=== PATIENT | female | born 1940 | race Caucasian/White ===

== ENCOUNTER 2018-02-16 06:37 | Day surgery (SDC) | payer MEDICARE ==
[2018-02-16] MEDS: NS 1,000 ML IV (06:00)
[2018-02-16] MEDS ORDERED: SIMETHICONE 40MG/0.6ML DROPS 30ML As Ordered (07:09)
[2018-02-16] MEDS ORDERED: PROPOFOL 500 MG/50 ML VIAL As Ordered (07:43)
[2018-02-16] MEDS ORDERED: LIDOCAINE 2% INJ 100 MG/5 ML SDV (FOR ANES.) As Ordered (07:43)
== END 2018-02-16 08:29 | disposition home or self-care (01) ==
LOC: M OPP 06:37
DX: R19.5 Other fecal abnormalities (principal); Z80.0 Family history of malignant neoplasm of digestive organs; D12.2 Benign neoplasm of ascending colon; K64.0 First degree hemorrhoids; K57.30 Diverticulosis of large intestine without perforation or abscess without bleeding; I10 Essential (primary) hypertension; E78.5 Hyperlipidemia, unspecified; E11.9 Type 2 diabetes mellitus without complications; Z78.0 Asymptomatic menopausal state; N81.10 Cystocele, unspecified; Z96.659 Presence of unspecified artificial knee joint; Z88.5 Allergy status to narcotic agent; Z88.7 Allergy status to serum and vaccine; Z79.82 Long term (current) use of aspirin; Z79.899 Other long term (current) drug therapy; Z79.84 Long term (current) use of oral hypoglycemic drugs; Z80.3 Family history of malignant neoplasm of breast; Z80.41 Family history of malignant neoplasm of ovary
CPT/HCPCS: 45380

== ENCOUNTER → 2018-06-22 | Outpatient (REF) | payer MEDICARE ==
[~2018-06-22] MED LIST: ASPI81TA85; ATOR1TAB19 PO; CALCIUM OR; COUM2.5T17 PO; METF750T PO; NATU400T; TYLE167L PO; ULTR50TA8 PO; VIT D OR; lisinopril OR
[2018-06-22 15:05] LABS: PERCENT SATURATION 20.2 % (13.2-45.0)
== END ==
LOC: M LAB REF 12:12
PROVIDERS: ATTEND Internal Medicine
DX: K62.5 Hemorrhage of anus and rectum (principal)

== ENCOUNTER → 2019-11-09 | Outpatient (CLI) | payer MEDICARE ==
--- NOTE | 2019-11-09 16:30 | REP ---
Pelvic sonography: History: Postmenopausal bleeding. Findings: Transabdominal and transvaginal scanning are performed. Visualized bladder moseley are smooth. Uterine dimensions are normal at 5.2 x 3.3 x 1.7 cm per endometrial echo 0.9 cm thick. There is a trace of endometrial fluid. There are scattered dystrophic myometrial calcifications. Upon insertion of the transvaginal probe, the technologist notes tissue was observed at the introitus question prolapse. The right ovary measures 2.4 x 0.9 x 2.3 cm. There is a 1.1 cm cyst at the right ovary. Left ovarian dimensions are 1.4 x 1.3 x 0.8 cm. A 0.7 cm cyst is seen on the left. Medial to the right ovary in the right adnexa there is a 2.7 x 2.3 x 2.4 cm cystic structure. Impression: 2.7 cm right adnexal cyst. Dystrophic calcifications scattered in the myometrium. Question vaginal or uterine prolapse as above. Electronically Signed by Cody Headley MD 11/09/2019 04:22 P
== END ==
LOC: M WHC 14:22
PROVIDERS: ATTEND Registered Nurse
DX: N83.291 Other ovarian cyst, right side (principal); N85.8 Other specified noninflammatory disorders of uterus; M95.0 Acquired deformity of nose

== ENCOUNTER 2020-01-05 06:51 | Day surgery (SDC) | payer MEDICARE ==
[~2020-01-05] VITALS: Ht 152.4 cm; Wt 55.8 kg
[~2020-01-05 06:51] MED LIST changes: +ASPI81TA86 PO; +D-40TAB2 PO; +LISI40TA PO; +METF500T13 PO
[2020-01-05] MEDS ORDERED: MIDAZOLAM INJ 2MG/2ML VIAL (J2250 PER 1MG) As Ordered ONE (07:48)
[2020-01-05] MEDS ORDERED: dexameTHASONE 4 MG/ML 1ML VIAL (J1100 PER 1MG) As Ordered ONE ×2 (07:48→09:24)
[2020-01-05] MEDS ORDERED: propofoL 200 MG/20 ML VIAL As Ordered ONE (07:48)
[2020-01-05] MEDS ORDERED: fentaNYL 100 MCG/2 ML INJECTION (J3010) As Ordered ONE (07:48)
[2020-01-05] MEDS ORDERED: LIDOCAINE 2% 100MG/5ML SDV (FOR ANES.) As Ordered ONE (07:48)
[2020-01-05] MEDS ORDERED: ONDANSETRON 4MG/2ML VIAL As Ordered ONE (07:48)
[2020-01-05] MEDS ORDERED: KETOROLAC 60MG 2ML VIAL As Ordered ONE (07:48)
[2020-01-05] MEDS ORDERED: LR 1,000 ML IV SCH ×2 (10:00→11:01)
[2020-01-05] MEDS ORDERED: ONDANSETRON 4MG/2ML VIAL IV PRN (10:00)
[2020-01-05] MEDS ORDERED: IBUPROFEN 600MG TAB PO PRN (11:01)
[2020-01-05 11:55] VITALS: BP 166/77
--- NOTE | 2020-02-23 12:35 | RO ---
DATE OF SURGERY: 01/05/2020 PREOPERATIVE DIAGNOSIS AND INDICATIONS FOR SURGERY: Post-menopausal bleeding and abnormal ultrasound. POSTOPERATIVE DIAGNOSIS: Post-menopausal bleeding and abnormal ultrasound. PROCEDURE: Dilatation and curettage with hysteroscopy, MyoSure. SURGEON: Brenna Flores MD ANESTHESIA: LMA. SPECIMENS: Endometrial sampling. BRIEF DESCRIPTION OF PROCEDURE AND FINDINGS: Margarita was brought to the operating room where sufficient LMA anesthesia was induced. She was prepped, draped, and positioned in the usual sterile fashion. The cervix was grasped with a single- toothed tenaculum and the bladder emptied with an in and out catheter. The cervix was then carefully sounded to 8. The cervical canal was dilated. 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 After careful dilation, the hysteroscope was placed and the endometrial cavity visualized. It was atrophic and small. She has quite a bit of cervix and very little corpus, as would be hoped in a 79-year-old woman. There were no polyps, although she had a 9-mm endometrium by ultrasound and clearly not a 9-mm lesion here. There is a tiny distortion right posterior fundal endometrium. The MyoSure light was used to sample the endometrium because I wanted to make sure we got a sample under direct visualization. Because of the level of atrophy, I knew there would be a very scant amount of tissue accessible. So, we did use the MyoSure and had a 360 sampling and removed that tiny, sort of distortion, of the endometrium entirely. I do not believe there is a significant lesion. We also did some endocervical sampling to be sure. It is highly likely that this patient had post-menopausal bleeding from mobility of the uterus and atrophy of the tissues, but based on these findings, nevertheless, we of course sent the tissue to the pathologist to confirm the visual appearance microscopically. After the samplings had been taken and tissue sent for pathologic evaluation, the procedure was ended. ESTIMATED BLOOD LOSS FOR THE PROCEDURE: About 2 mL. FLUID REPLACEMENT: Crystalloid. COMPLICATIONS: None. I did do final passes with the curettes after the use of the MyoSure to make sure any loosened up tissue was delivered and sent with the sample, but again, there is scant atrophic endometrium, as one would hope in a 79-year-old. CONDITION AND DISPOSITION: Margarita tolerated the procedure well and was recovering in the recovery room in good condition. SPENCER
== END 2020-01-05 12:00 | disposition home or self-care (01) ==
LOC: M SDC 06:51
PROVIDERS: ATTEND Obstetrics & Gynecology
DX: N95.0 Postmenopausal bleeding (principal); E11.9 Type 2 diabetes mellitus without complications; I10 Essential (primary) hypertension; E78.5 Hyperlipidemia, unspecified; Z79.899 Other long term (current) drug therapy; Z88.5 Allergy status to narcotic agent; Z88.7 Allergy status to serum and vaccine
CPT/HCPCS: 58558; 88305; J1100; J1885; J2250; J2405; J3010

== ENCOUNTER → 2022-01-24 | Outpatient (CLI) | payer MEDICARE ==
[~2022-01-24] MED LIST changes: -LISI40TA PO; +LISI40TA4 PO
== END ==
LOC: M WHC 09:41
PROVIDERS: ATTEND Internal Medicine
DX: Z12.31 Encounter for screening mammogram for malignant neoplasm of breast (principal)

== ENCOUNTER → 2022-07-02 | Outpatient (REF) | payer MEDICARE ==
[2022-07-03 14:40] LABS: APPEARANCE, URINE HAZY (CLEAR); BILIRUBIN, URINE AUTO NEGATIVE (NEGATIVE); BLOOD, URINE BLOOD 1+ (NEGATIVE); COLOR, URINE YELLOW (YELLOW); GLUCOSE, URINE (UA) AUTO NEGATIVE (NEGATIVE); KETONE, URINE AUTO NEGATIVE (NEGATIVE); LEUKOCYTE ESTERASE, URINE AUTO NEGATIVE (NEGATIVE); NITRITE, URINE AUTO NEGATIVE (NEGATIVE); PROTEIN, URINE AUTO NEGATIVE (NEGATIVE); SPECIFIC GRAVITY URINE AUTO 1.016 (1.002-1.035); UROBILINOGEN, URINE AUTO 0.2 mg/dL (0.0-2.0)
== END ==
LOC: M SMT 12:49
PROVIDERS: ATTEND Urology
DX: N39.0 Urinary tract infection, site not specified (principal)

== ENCOUNTER → 2023-01-27 | Outpatient (REF) | payer MEDICARE ==
[2023-01-27 19:33] LABS: FOLATE 18.2 NG/ML (>5.4)
== END ==
LOC: M LAB REF 16:37
PROVIDERS: ATTEND Internal Medicine
DX: E53.8 Deficiency of other specified B group vitamins (principal); F02.80 Dementia in other diseases classified elsewhere, unspecified severity, without behavioral disturbance, psychotic disturbance, mood disturbance, and anxiety

== ENCOUNTER → 2024-06-27 | Outpatient (CLI) | payer MEDICARE | LOC: M WHC 09:34 | PROVIDERS: ATTEND Internal Medicine | DX: Z12.31 Encounter for screening mammogram for malignant neoplasm of breast (principal) ==